=== PATIENT | female | born 1985 | race Caucasian/White ===

== ENCOUNTER 2024-09-07 14:15 | Outpatient (CLI) | payer BC, SELFPAY | END 2024-09-07 14:16 | disposition home or self-care (01) | LOC: NFLDREF 09-08 10:58 | PROVIDERS: Visit Provider Physician Assistant Medical | DX: R51.9 Headache, unspecified (principal); G89.29 Other chronic pain; R09.81 Nasal congestion; R79.0 Abnormal level of blood mineral | CPT/HCPCS: 80053; 82306; 82607; 82728; 84443 ==

== ENCOUNTER 2024-12-05 13:37 | Outpatient (CLI) | payer BC, SELFPAY | END 2024-12-05 13:38 | disposition home or self-care (01) | LOC: NFLDREF 12-06 00:35 | PROVIDERS: Visit Provider Physician Assistant Medical | DX: R79.0 Abnormal level of blood mineral (principal) | CPT/HCPCS: 82728 ==

== ENCOUNTER 2024-12-13 12:28 | Outpatient (CLI) | payer BC, SELFPAY ==
--- NOTE | 2024-12-20 08:49 | W.PM.SLEEP ---
Sleep Study Details Details Interpreting Provider: Kaden Date of Sleep Study: 12/13/24 Sleep Study Details: STUDY TYPE:? Home on a 10 ? BMI:? 28.3 ORDERING PROVIDER: Kaden INDICATION:? Daytime hypersomnolence, concern about sleep apnea ? SLEEP SUMMARY:? 592 minutes monitored RESPIRATORY SUMMARY:? AHI 0.9, low oxygen 88, 0.3% of study oxygen less than 90%, snoring 98.9% PERIODIC LIMB MOVEMENTS OF SLEEP:? Not recorded CARDIAC:? Range 61-131, mean 79.3 IMPRESSION:? This study is not demonstrate clinically significant obstructive sleep apnea. Some tachycardia was noted with a high heart rate of 131 RECOMMENDATION: If sleep disorder is strongly suspected would recommend either repeat study in the sleep lab or repeat study at home with a sedative hypnotic agent. Further evaluation for tachycardia may be indicated.
== END 2024-12-13 12:29 | disposition home or self-care (01) ==
PROVIDERS: Visit Provider Otolaryngology
DX: G47.19 Other hypersomnia (principal)
CPT/HCPCS: 95806

== ENCOUNTER 2025-01-31 09:50 | Outpatient (CLI) | payer BC, SELFPAY ==
--- NOTE | 2025-01-31 10:00 | CRLHL7_ITS ---
For Patients: As a result of the Century Cures Act, medical imaging exams and procedure reports are released immediately into your electronic medical record. You may view this report before your referring provider. If you have questions, please contact your health care provider. Indication: CHRONIC SINUSITIS Technique: Performed without IV contrast Comparison: None available Findings: Frontal sinuses: Clear. Ethmoid sinuses: Clear. Maxillary sinuses: Mild mucosal thickening is present within the maxillary sinuses. The maxillary sinus drainage pathways are patent on both sides. Sphenoid sinuses: Clear, including both sphenoethmoidal recesses. Nasal Cavity: Leftward curvature of the nasal septum. No TMJ abnormalities identified. The visualized portions of the orbits, intracranial contents and upper soft tissue neck are grossly negative. Impression: 1. Mild bilateral maxillary sinus disease. 2. Leftward curvature of the nasal septum. Please note that all CT scans at this facility use dose modulation, iterative reconstruction, and/or weight-based dosing when appropriate to reduce radiation dose to as low as reasonably achievable. Dictated by Polo Moss MD @ 01/31/2025 11:06:39 AM (Electronically Signed)
== END 2025-01-31 09:51 | disposition home or self-care (01) ==
LOC: CT 09:51
PROVIDERS: PCP Physician Assistant Medical; Visit Provider Otolaryngology
DX: J32.9 Chronic sinusitis, unspecified (principal); J34.2 Deviated nasal septum; J32.0 Chronic maxillary sinusitis
CPT/HCPCS: 70486

== ENCOUNTER 2025-04-17 09:03 | Outpatient (CLI) | payer BC, SELFPAY | END 2025-04-17 09:04 | disposition home or self-care (01) | LOC: NFLDREF 04-19 14:52 | PROVIDERS: PCP Physician Assistant Medical; Referring Provider Physician Assistant Medical; Visit Provider Physician Assistant Medical | DX: R79.0 Abnormal level of blood mineral (principal) | CPT/HCPCS: 82728 ==

== ENCOUNTER 2025-05-29 10:13 | Outpatient (CLI) | payer BC, SELFPAY ==
[2025-05-31 18:38] LABS: HPV Source Cervical/Vag
== END 2025-05-29 10:14 | disposition home or self-care (01) ==
PROVIDERS: PCP Physician Assistant Medical; Visit Provider Physician Assistant Medical
DX: Z11.51 Encounter for screening for human papillomavirus (HPV) (principal); Z12.4 Encounter for screening for malignant neoplasm of cervix
CPT/HCPCS: 87624; 87625; 88141; 88142

== ENCOUNTER 2025-06-26 10:00 | Outpatient (CLI) | payer BC, SELFPAY ==
--- NOTE | 2025-06-26 10:15 | CRLHL7_ITS ---
For Patients: As a result of the Century Cures Act, medical imaging exams and procedure reports are released immediately into your electronic medical record. You may view this report before your referring provider. If you have questions, please contact your health care provider. INDICATION: BILATERAL SCREENING MAMMOGRAM, ASYMPTOMATIC 39 Y/O FEMALE COMPARISON: BASELINE TECHNIQUE: Digital mammogram in CC and MLO projections including computer-aided detection (CAD) and tomosynthesis. BREAST COMPOSITION: The breasts are heterogeneously dense, which may obscure small masses. FINDINGS: No suspicious findings. ASSESSMENT: BI-RADS 1 Negative RECOMMENDATION: Annual screening mammogram. A lay language report of this examination will be provided to the patient. Dictated by: Polo Moss MD @ 06/26/2025 12:11:16 (Electronically Signed)
== END 2025-06-26 10:01 | disposition home or self-care (01) ==
LOC: MAMMO 10:00
PROVIDERS: PCP Physician Assistant Medical; Visit Provider Physician Assistant Medical
DX: Z12.31 Encounter for screening mammogram for malignant neoplasm of breast (principal); R92.333 Mammographic heterogeneous density, bilateral breasts
CPT/HCPCS: 77063; 77067

== ENCOUNTER 2025-07-31 08:08 | Outpatient (CLI) | payer BC, SELFPAY | END 2025-07-31 08:09 | disposition home or self-care (01) | LOC: NFLDREF 08-05 04:09 | PROVIDERS: PCP Physician Assistant Medical; Referring Provider Physician Assistant Medical; Visit Provider Physician Assistant Medical | DX: R79.0 Abnormal level of blood mineral (principal) | CPT/HCPCS: 82728 ==